=== PATIENT | male | born 2000 | race Two or more races ===

== ENCOUNTER 2020-09-26 17:21 | Emergency (ER) | payer SELFPAY ==
[~2020-09-26] VITALS: Ht 175.3 cm; Wt 97.0 kg
[2020-09-26 17:30] VITALS: BP 139/99
[2020-09-26] MEDS ORDERED: DIPH,PERTUSS(ACELL),TET VAC/PF 0.5 ML IM-VACC ONE ×2 (18:00→18:39)
[2020-09-26] MEDS ORDERED: LIDOCAINE-MPF 1%, 5ML INFIL ONE (18:00)
[2020-09-26] MEDS ORDERED: LIDOCAINE-MPF 1%, 5ML ONE (18:37)
[2020-09-26] MEDS ORDERED: NEOSPORIN OINT. PKT 1 PACKET ONE (20:27)
== END 2020-09-26 20:37 | disposition home or self-care (01) ==
LOC: ED 20:15
DX: S01.152A Open bite of left eyelid and periocular area, initial encounter (principal); W54.0XXA Bitten by dog, initial encounter; Y93.89 Activity, other specified; Y92.009 Unspecified place in unspecified non-institutional (private) residence as the place of occurrence of the external cause; Y99.8 Other external cause status
CPT/HCPCS: 12051; 90471; 90715; 99284

== ENCOUNTER 2020-10-02 19:54 | Emergency (ER) | payer SELFPAY ==
[~2020-10-02] VITALS: Ht 175.3 cm; Wt 97.3 kg
[2020-10-02 19:55] VITALS: BP 149/55
--- NOTE | 2020-10-02 20:00 | NUR ---
SUTURES REMOVED WITHOUT ISSUE. EDGES WELL APPROXIMATED. NO S/S INFECTION.
== END 2020-10-02 20:11 | disposition home or self-care (01) ==
LOC: ED 20:08
DX: S01.81XD Laceration without foreign body of other part of head, subsequent encounter (principal); Z48.02 Encounter for removal of sutures; X58.XXXD Exposure to other specified factors, subsequent encounter
CPT/HCPCS: 99281